=== PATIENT | male | born 1975 | race Caucasian/White ===

== ENCOUNTER → 2020-03-10 | Outpatient (CLI) | payer OTHER ==
[2020-03-10 15:09] LABS: HEMATOCRIT 45.1 % (42.0-52.0); HEMOGLOBIN 15.2 gm/dL (14.0-18.0); MCHC 33.8 g/dL (28.0-37.0); MCV 97.5 fL (80.0-100.0); PLATELET COUNT 279 thou/uL (150-400); RBC 4.63 mil/uL (4.50-6.00); RDW 15.1 % (10.5-14.5); WBC 13.4 thou/uL (4.0-11.0)
[2020-03-10 15:10] LABS: URINE BILIRUBIN NEGATIVE (Negative); URINE BLOOD NEGATIVE (Negative); URINE CLARITY CLEAR; URINE COLOR YELLOW; URINE GLUCOSE-RANDOM* NEGATIVE (Negative); URINE KETONES NEGATIVE (Negative); URINE LEUKOCYTES NEGATIVE (Negative); URINE NITRITE NEGATIVE (Negative); URINE PROTEIN (DIPSTICK) NEGATIVE (Negative); URINE UROBILINOGEN 0.2 E.U./dl (0.2-1.0)
[2020-03-10 15:24] LABS: BACTERIA None Seen /HPF (None Seen); CASTS None Seen /LPF (None Seen); CRYSTALS None Seen /LPF (None Seen); SQUAMOUS None Seen /LPF (0-3); URINE RBC None Seen /HPF (0-2); URINE WBC None Seen /HPF (0-5)
[2020-03-10 15:27] LABS: ALBUMIN 3.8 g/dL (3.4-5.0); ANION GAP 7 mmol/L (7-16); BUN 13 mg/dL (7-18); CALCIUM 8.8 mg/dL (8.5-10.1); CHLORIDE 102 mmol/L (98-107); CHOLESTEROL 195 mg/dL (<200); CO2 30 mmol/L (21-32); CREATININE 0.9 mg/dL (0.7-1.3); GLUCOSE 67 mg/dL (74-106); HDL CHOLESTEROL 52 mg/dL (>40); LDL CHOLESTEROL 124 mg/dL (<100); POTASSIUM 4.1 mmol/L (3.5-5.1); SGOT 30 U/L (15-37); SGPT 83 U/L (30-65); SODIUM 139 mmol/L (136-145); TC:HDL 3.8 Ratio (Not establshd); TOTAL BILIRUBIN 0.3 mg/dL (0.2-1.0); TOTAL PROTEIN 7.2 g/dL (6.4-8.2); TRIGLYCERIDE 99 mg/dL (<150); VLDL 20 mg/dL (<40)
[2020-03-10 15:32] LABS: ABSOLUTE NEUTROPHILS 8.4 thou/uL (1.4-8.2); ANISOCYTOSIS 1+
== END ==
LOC: LABMALL 14:18
PROVIDERS: ATTEND Nurse Practitioner
DX: Z00.00 Encounter for general adult medical examination without abnormal findings (principal)